=== PATIENT | male | born 1975 | race Caucasian/White ===

== ENCOUNTER 2020-11-26 11:22 | Emergency (ER) | payer MEDICAID ==
[~2020-11-26] VITALS: Ht 165.1 cm; Wt 75.0 kg
[2020-11-26] MEDS ORDERED: KETOROLAC 30MG/ML VIAL IV STA (11:50)
[2020-11-26] MEDS ORDERED: SODIUM CHLORIDE 0.9% 1,000 ML IV ONE (12:00)
[2020-11-26 12:03] LABS: BASOPHILS % 0.2 % (0.0-2.0); EOSINOPHILS % 0.3 % (0.0-5.0); HEMATOCRIT. 40.2 % (42.0-52.0); HEMOGLOBIN. 14.1 g/dL (14.0-18.0); MEAN CORPUSCULAR HEMOGLOBIN 30.6 pg (28.0-32.0); MEAN CORPUSCULAR VOLUME 87.5 fL (80.0-94.0); MEAN PLATELET VOLUME 7.9 fl (7.4-10.4); MONOCYTES % 9.6 % (2.0-8.0); NEUTROPHILS % 76.9 % (40.0-76.0); PLATELET 202 x1000/uL (130-400); RED BLOOD CELL COUNT 4.59 mill/uL (4.7-6.1)
[2020-11-26 12:09] LABS: CHLORIDE 97 mEq/L (98-107)
[2020-11-26] MEDS ORDERED: IBUP-2028 MT (12:40)
[2020-11-26 14:01] VITALS: BP 126/92
== END 2020-11-26 14:30 | disposition home or self-care (01) ==
LOC: ER 11:29 → EDBD 11:29 → ER 14:30
DX: U07.1 COVID-19 (principal); B34.9 Viral infection, unspecified; I49.9 Cardiac arrhythmia, unspecified
CPT/HCPCS: 36415; 71045; 80053; 85025; 87070; 87430; 93005; 96374; 99285; C9803; J1885; J7030; U0003

== ENCOUNTER 2025-06-17 23:09 | Emergency (ER) | payer MEDICAID ==
[~2025-06-17] VITALS: Ht 165.1 cm; Wt 80.0 kg
[~2025-06-17 23:09] MED LIST: IBUP-2028 MT
[2025-06-17 23:53] VITALS: O2SAT 97
[2025-06-18] MEDS: KETOROLAC 15MG/ML VIAL IM ONE (01:16)
[2025-06-18] MEDS ORDERED: IBUP-2028 MT (01:43)
[2025-06-18 02:03] VITALS: BP 132/85; PULSE 70; RESP 16; TEMP 36.6; O2SAT 98
== END 2025-06-18 02:06 | disposition home or self-care (01) ==
LOC: ER 23:09
DX: M79.644 Pain in right finger(s) (principal); I25.2 Old myocardial infarction; W22.8XXA Striking against or struck by other objects, initial encounter; Y93.89 Activity, other specified; Y92.89 Other specified places as the place of occurrence of the external cause; Y99.8 Other external cause status
CPT/HCPCS: 99283; 73130; 96372; J1885